=== PATIENT | female | born 2000 | race Hispanic/Latino ===

== ENCOUNTER → 2020-06-05 09:37 | Outpatient (CLI) | payer OTHER, MEDICAID, SELFPAY ==
[2020-06-05 11:34] LABS: Urine N gonorrhoeae NOT DETECTED
[2020-06-05 11:46] LABS: Urine Chlamydia NOT DETECTED
== END ==
PROVIDERS: Visit Provider Physician Assistant
DX: R35.0 Frequency of micturition (principal); R39.15 Urgency of urination; R30.0 Dysuria
CPT/HCPCS: 87077; 87086; 87186; 87210; 87491; 87591

== ENCOUNTER 2020-09-07 10:22 | Emergency (ER) | payer OTHER, MEDICAID, SELFPAY ==
[2020-09-07 10:32] VITALS: BP 142/96; PULSE 102; RESP 18; TEMP 37.1; O2SAT 100; BMI 21.0
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
[2020-09-07 10:54] LABS: Add Manual Diff / Slide Review NO; Basophils Absolute Auto 0 /uL (0-100); Basophils Percent Auto 0.3 % (0-2); Eosinophils Absolute Auto 0 /uL (0-450); Eosinophils Percent Auto 0.3 % (2-4); Hematocrit 42.3 % (36-46); Lymphocytes Absolute Auto 1700 /uL (1100-4500); Lymphocytes Percent Auto 16.9 % (25-40); Mean Corpuscular HGB Conc 35.3 % (30-36); Mean Corpuscular Hemoglobin 32.9 PG (26-34); Mean Corpuscular Volume 93.2 fL (80-100); Monocytes Absolute Auto 400 /uL (0-900); Monocytes Percent Auto 4.2 % (3-14); Neutrophils Absolute Auto 8000 /uL (1500-7000); Neutrophils Percent Auto 78.3 % (50-75); Platelet Count 262 X10^3/uL (150-400); Red Blood Cell Count 4.54 X10^6/uL (4.0-5.2); Red Cell Distribution Width 12.6 % (11.6-14.8); White Blood Cell Count 10.2 X10^3/uL (4.5-11.0)
[2020-09-07] MEDS: SODIUM CHLORIDE 0.9% 1,000 ML 1000 ML IV (10:54)
[2020-09-07 10:59] LABS: INR 1.3 (0.9-1.3); Prothrombin Time 14.4 SECONDS (10.1-12.7)
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
[2020-09-07 11:02] LABS: PTT Partial Thromboplastin Tim 37 SECONDS (26.4-36.2)
[2020-09-07 11:03] LABS: Alanine Aminotransferase 32 IU/L (<35); Albumin 4.5 g/dL (3.5-5.0); Albumin Globulin Ratio 1.3 (1.0-2.8); Alkaline Phosphatase 105 U/L (38-126); Aspartate Aminotransferase 28 IU/L (14-36); BUN Creatinine Ratio 20.8 (6-22); Bilirubin Total 0.6 mg/dL (0.2-1.3); Blood Urea Nitrogen 10 mg/dL (7-17); Calcium 9.6 mg/dL (8.4-10.2); Carbon Dioxide 24 mmol/L (22-32); Chloride 106 mmol/L (98-107); Estimated Glomerular Filt Rate > 60.0 mL/min (>60); Globulin 3.5 g/dL (1.7-4.1); Glucose 110 mg/dL (70-100); HEMOLYSIS 17 (0-50); Lipase 67 U/L (23-300); Potassium 3.8 mmol/L (3.4-5.1); Sodium 138 mmol/L (137-145)
[2020-09-07 11:04] LABS: Lactate (Lactic Acid) 1.4 mmol/L (0.7-2.1)
[2020-09-07 11:20] LABS: HCG Quantitative /Beta subunit < 2.4 mIU/mL; Procalcitonin < 0.03 ng/mL (<0.5)
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
[2020-09-07 12:53] VITALS: BP 126/87; PULSE 82; RESP 16; TEMP 36.9; O2SAT 98
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
== END 2020-09-07 12:57 | disposition home or self-care (01) ==
PROVIDERS: Emergency Provider Nurse Practitioner Family
DX: R10.31 Right lower quadrant pain (principal); R50.9 Fever, unspecified; M54.5 Low back pain
CPT/HCPCS: 36415; 76830; 76856; 80053; 81003; 81025; 83605; 83690; 84145; 84702; 85025; 85610; 85730; 86900; 86901; 96360; 96361; 99283; 99284

== ENCOUNTER → 2020-12-11 14:41 | Outpatient (CLI) | payer OTHER, MEDICAID, SELFPAY ==
[2020-12-11 16:00] LABS: Appearance Urine UA CLEAR; Bilirubin Urine UA NEGATIVE (NEGATIVE); Color Urine UA YELLOW; Glucose Urine UA NEGATIVE (Negative); Ketones Urine UA NEGATIVE (NEGATIVE); Leukocyte Esterase Urine UA NEGATIVE (NEGATIVE); Nitrite Urine UA NEGATIVE (Negative); Occult Blood Urine UA NEGATIVE (Negative); Protein Urine UA NEGATIVE (Negative); Urobilinogen Urine UA 0.2 E.U./dL (0.2)
[2020-12-11 16:01] LABS: pH Urine UA 6.5 (4.5-8.0)
[2020-12-11 16:56] LABS: Thyroid Stimulating Hormone 0.725 uIU/mL (0.47-4.68)
[2020-12-11 17:05] LABS: HCG Quantitative /Beta subunit 37330 mIU/mL
== END ==
PROVIDERS: PCP Registered Nurse; Referring Provider Registered Nurse; Visit Provider Registered Nurse
DX: Z34.90 Encounter for supervision of normal pregnancy, unspecified, unspecified trimester (principal); R35.0 Frequency of micturition; R30.0 Dysuria; Z87.59 Personal history of other complications of pregnancy, childbirth and the puerperium
CPT/HCPCS: 36415; 81003; 84439; 84443; 84702

== ENCOUNTER → 2020-12-27 08:55 | Outpatient (CLI) | payer MEDICAID, SELFPAY ==
--- NOTE | 2020-12-27 08:56 | DI.US.S_ITS ---
PROCEDURE: US PELVIC COMPLETE INDICATIONS: CONFIRM TERMINATION TECHNIQUE: Real-time scanning was performed of the pelvic organs, with image documentation. Additional endovaginal scanning was necessary due to incomplete visualization of the adnexal and endometrial structures by transabdominal scanning. COMPARISON: [facility], , US PELVIC COMPLETE, 09/07/2020, 11:01. FINDINGS: Uterus: Uterus is normal in size at 7 x 3.4 x 4.6 cm. The endometrium measures 7-8 mm in combined thickness. The endometrial stripe is heterogeneous. No intrauterine gestation is seen. No abnormal vascularity can be seen along the endometrial stripe. Ovaries: The right ovary measures 3.1 x 1.6 x 1.7 cm and demonstrates a likely resolving cyst that measures up to 1.4 cm. The left ovary measures 2.7 x 2.2 x 2 x 2 cm. The ovaries have a normal sonographic appearance. No adnexal masses are seen. Other: No pathologic free abdominal or pelvic fluid. IMPRESSION: Heterogeneous endometrial stripe, without findings of an intrauterine . No abnormal vascular material can be seen along the endometrial stripe to suggest retained products of conception. Dictated by: Wayne Farley M.D. on 12/27/2020 at 9:08 Approved by: Wayne Farley M.D. on 12/27/2020 at 9:11
== END ==
PROVIDERS: PCP Registered Nurse; Referring Provider Registered Nurse; Visit Provider Registered Nurse
DX: Z33.2 Encounter for elective termination of pregnancy (principal)
CPT/HCPCS: 76830; 76856

== ENCOUNTER → 2021-05-02 09:34 | Outpatient (CLI) | payer OTHER, MEDICAID, SELFPAY ==
[2021-05-02 12:04] LABS: Urine N gonorrhoeae NOT DETECTED
[2021-05-02 13:56] LABS: Urine Chlamydia NOT DETECTED
[2021-05-02 19:44] LABS: Hepatitis B Surface Antigen NEGATIVE s/c (NEGATIVE)
[2021-05-02 20:00] LABS: HIV 1 & 2 Ab/Ag 4th Gen Combo NEGATIVE (NEGATIVE); Hep C Virus Ab w/Reflex Quant NEGATIVE s/c (NEGATIVE)
[2021-05-03 04:37] LABS: HSV 2 IGG AB 7.34 index (0.00-0.90); RPR Screen Non Reactive (Non Reactive)
[2021-05-03 19:41] LABS: HSV I/II IgM <0.91 Ratio (0.00-0.90)
== END ==
PROVIDERS: PCP Registered Nurse; Referring Provider Registered Nurse; Visit Provider Registered Nurse
DX: Z20.2 Contact with and (suspected) exposure to infections with a predominantly sexual mode of transmission (principal); Z87.898 Personal history of other specified conditions
CPT/HCPCS: 36415; 86592; 86694; 86695; 86696; 86803; 87340; 87389; 87491; 87591

== ENCOUNTER 2022-07-11 08:14 | Emergency (ER) | payer OTHER, MEDICAID, SELFPAY ==
[2022-07-11] VITALS (8 sets, daily range): BP systolic 156; BP diastolic 107–109; PULSE 98–119; RESP 20; TEMP 37.2; O2SAT 97–98; BMI 21.9
--- NOTE | 2022-07-11 08:21 | ED_ITS ---
HPI - General Adult General Chief complaint: Toxicology Problem Stated complaint: ETOH WD Time Seen by Provider: 07/11/22 08:21 History of Present Illness HPI narrative: 21F former smoker with history alcohol abuse presents by EMS for evaluation of withdrawal type symptoms. She states she drinks at least a 6 pack per day and last drank 2-3 days ago and is feeling unwell. She has a headache and some significant agitation. She is feeling anxious and has some abdominal discomfort along with nausea and vomiting. She denies any auditory, visual or tactile hallucinations. She states she typically drinks at least a six-pack of beer per day. She is gone through withdrawal before and it feels the same. She states a friend gave her Suboxone 4 mg today in an effort to help her not drink and she feels like she became more nauseated after this. She is never had seizures as a consequence of her withdrawal. She has never been to detox or rehab before Related Data Previous Rx's Medication Instructions Recorded hydroxyzine HCl 50 mg tablet 50 mg PO BEDTIME PRN anxiety, 05/02/21 insomnia #30 tabs escitalopram oxalate 10 mg tablet See Rx Instructions .Route 09/18/21 .COMPLEX #90 tabs chlordiazepoxide HCl 25 mg capsule See Rx Instructions .Route 07/11/22 .COMPLEX #32 caps ondansetron 4 mg disintegrating 4 mg PO TID-QID PRN nausea and 07/11/22 tablet vomiting #10 tabs Allergies Allergy/AdvReac Type Severity Reaction Status Date / Time No Known Drug Allergies Allergy Verified 05/02/21 09:40 Review of Systems Review of Systems Narrative: GENERAL: See HPI HEENT: Denies sinus pain, ear pain, sore throat, difficulty swallowing, dizziness. RESPIRATORY: Denies dyspnea, cough, wheezing, hemoptysis, sputum. CARDIOVASCULAR: Denies chest pain, palpitations, orthopnea, edema, GASTROINTESTINAL: See HPI : Denies dysuria, frequency, incontinence, hematuria, urinary retention. MUSCULOSKELETAL: denies weakness, joint pain, or bony pain SKIN: Denies rash, skin lesions, or other NEUROLOGIC: See HPI PSYCHIATRIC: See HPI 12 point review of systems is negative except for those stated above Patient History Medical History Chest pain Encounter for counseling regarding contraception History of miscarriage No active medical problems Possible exposure to STD (~11/2020) Termination of UTI (urinary tract infection) Family History Mother Diabetes mellitus Social History Smoking Status: Former smoker Smoking Status: Former smoker alcohol intake frequency: other Substance Use Type: does not use Exam Narrative Exam Narrative: GENERAL: [21] year old patient appears stated age. Well-developed patient, in moderate distress, anxious HEAD: Atraumatic. Normocephalic. EYES: Pupils equal round and reactive. Extraocular motions intact. No scleral icterus. No injection or drainage. ENT: Nose without bleeding, purulent drainage. Throat without erythema, tonsillar hypertrophy or exudate. Airway patent. NECK: Trachea midline. Non tender CARDIOVASCULAR: Tachycardic and irregular rhythm without murmurs, gallops, or rubs. RESPIRATORY: Clear to auscultation. Breath sounds equal bilaterally. No wheezes, rales, or rhonchi. GASTROINTESTINAL: Abdomen soft, non-tender, nondistended. EXTREMITIES: No edema or joint tenderness. BACK: Nontender without deformity or crepitance. No flank tenderness. NEURO: AOx3. Cranial nerves 2-12 grossly intact SKIN: No rash or erythema of visible areas Initial Vital Signs Initial Vital Signs: Vital Signs Pulse Oximetry 97 07/11/22 08:17 Course Course Course Narrative: [facility]pe for Alcohol Withdrawal from [employer] on 07/11/2022 All calculations should be rechecked by clinician prior to use RESULT SUMMARY: 14 points Patients with scores >= may require medication for withdrawal. INPUTS: Nausea/vomiting ?> 4 = Intermittent nausea with dry heaves Tremor ?> 2 = (More severe symptoms) Paroxysmal sweats ?> 0 = No sweat visible Anxiety ?> 4 = Moderately anxious, or guarded, so anxiety is inferred Agitation ?> 3 = (More severe symptoms) Tactile disturbances ?> 0 = None Auditory disturbances ?> 0 = Not present Visual disturbances ?> 0 = Not present Headache/fullness in head ?> 1 = Very mild Orientation/clouding of sensorium ?> 0 = Oriented, can do serial additions Orders Ordered: Discontinued Medications Lorazepam (Lorazepam 2 Mg/Ml Inj) 1 mg IM NOW ONE Stop: 07/11/22 08:26 Last Admin: 07/11/22 08:57 Dose: 1 mg Documented By: RLS Reevaluation(s) Reevaluation #1: Patient feeling much better after 1st round of Ativan. Symptoms greatly improved, she is still slightly tachycardic at about 105 but overall significant improvement Vital Signs Vital signs: Vital Signs - 8 hr 07/11/22 08:29 07/11/22 08:17 07/11/22 08:18 Temperature 98.9 F Pulse Rate 106 H 107 H Respiratory Rate 20 Blood Pressure 156/107 H Pulse Oximetry 98 97 98 Oxygen Delivery Method Room Air 07/11/22 08:18 07/11/22 08:30 07/11/22 09:00 Temperature Pulse Rate 107 H 100 H Respiratory Rate Blood Pressure 156/109 H Pulse Oximetry 98 98 Oxygen Delivery Method 07/11/22 09:30 07/11/22 10:00 07/11/22 10:30 Temperature Pulse Rate 100 H 119 H 98 H Respiratory Rate Blood Pressure Pulse Oximetry 98 97 98 Oxygen Delivery Method Room Air Medical Decision Making [facility] Narrative Medical decision making narrative: 21-year-old female presents with multiple general complaints, stating she is concerned about alcohol withdrawal. Multiple diagnoses considered but alcohol withdrawal certainly seems most reasonable. She is not interested in a significant workup including labs or IV. She has significant if not complete resolution of symptoms after intramuscular Ativan. Extensive return precautions discussed, prescription sent to the pharmacy of her choice. Questions answered to her apparent satisfaction Discharge Plan Departure Patient Disposition: Home Clinical Impression: Alcohol abuse Instructions: DI for Alcohol Use Disorder Activity Restrictions/Additional Instructions: *You have been diagnosed with [mild alcohol withdrawal] *What to do: *Please continue to take your regular medications as directed. [x ] New medication prescriptions sent to your pharmacy: [[facility] ] [ ] New medication written as a paper prescription [ ] No new medications given *Please follow up with your primary care provider in 2-3 days, call for an appointment. Let them know you were seen in the Emergency Department and that we ask that you be seen in follow up. We will electronically transmit a record of today's note if your PCP is in our system *If you do not have a primary care provider please contact the [facility] Resource line at [phone]. They will ask some questions about your medical history and help get you set up with a doctor in the community. *Return to Emergency Department if you should have any new, worsening or concerning symptoms, such as [fever greater than 101 F, shaking chills, worsening pain, persistent vomiting or other bothersome symptoms] Prescriptions: New chlordiazepoxide HCl 25 mg capsule See Rx Instructions .ROUTE .COMPLEX Qty: 32 0RF Rx Instructions: Day 1: 50mg POq4 Day 2: 50mg POq6 Day 3: 50mg POq8 Day 4: 50mg POq12 Day 5: 50mg POqhs #32 ondansetron 4 mg tablet,disintegrating 4 mg PO TID-QID PRN (Reason: nausea and vomiting) Qty: 10 0RF No Action escitalopram oxalate 10 mg tablet See Rx Instructions .ROUTE .COMPLEX Qty: 90 0RF Dose Instruction: TAKE 1 TABLET BY MOUTH DAILY Rx Instructions: TAKE 1 TABLET BY MOUTH DAILY hydroxyzine HCl 50 mg tablet 50 mg PO BEDTIME PRN (Reason: anxiety, insomnia) Qty: 30 2RF Referrals: [facility] [Outside] [facility] [Outside] [facility] [Outside]
[2022-07-11] MEDS: LORazepam 2 MG/ML INJ 1 MG IM (08:57)
--- NOTE | 2022-07-11 10:42 | PC.NURSE ---
pt talking on cell phone making follow up appts and watching youtube videos.
== END 2022-07-11 10:48 | disposition home or self-care (01) ==
PROVIDERS: Emergency Provider Emergency Medicine
DX: F10.139 Alcohol abuse with withdrawal, unspecified (principal)
CPT/HCPCS: 96372; 99283; J2060